=== PATIENT | female | born 1970 | race Caucasian/White ===

== ENCOUNTER → 2016-09-01 | Outpatient (CLI) | payer OTHER | END | disposition home or self-care (01) | LOC: MA 08-26 13:00 | PROC: BU4CZZZ Ultrasonography of Uterus and Ovaries (ICD-10-PCS; principal; 2016-09-01) | PROC: BW40ZZZ Ultrasonography of Abdomen (ICD-10-PCS; 2016-09-01) | PROC: BH02ZZZ Plain Radiography of Bilateral Breasts (ICD-10-PCS; 2016-09-01) | DX: Z12.31 Encounter for screening mammogram for malignant neoplasm of breast (principal); Z87.42 Personal history of other diseases of the female genital tract | CPT/HCPCS: G0204 ==

== ENCOUNTER → 2017-02-03 | Outpatient (CLI) | payer OTHER | END | disposition home or self-care (01) | LOC: LB 16:38 | DX: N76.0 Acute vaginitis (principal); Z72.51 High risk heterosexual behavior ==

== ENCOUNTER → 2018-04-22 | Outpatient (CLI) | payer OTHER | END | disposition home or self-care (01) | LOC: MA 14:41 | PROC: BH02ZZZ Plain Radiography of Bilateral Breasts (ICD-10-PCS; principal; 2018-04-22) | DX: Z12.31 Encounter for screening mammogram for malignant neoplasm of breast (principal); Z12.39 Encounter for other screening for malignant neoplasm of breast | CPT/HCPCS: 77066 ==

== ENCOUNTER → 2018-07-08 | Outpatient (CLI) | payer OTHER | END | disposition home or self-care (01) | LOC: LB 16:56 | DX: N95.1 Menopausal and female climacteric states (principal) | CPT/HCPCS: 82670; 84402; 84403 ==

== ENCOUNTER → 2019-07-29 | Outpatient (CLI) | payer OTHER ==
[2019-07-29 10:59] LABS: BASOPHIL % 0.7 % (0-2); PLATELET COUNT 229 x10^3mcL (130-400); RED CELL DISTRIBUTION WIDTH 13.5 % (11.5-14.5)
[2019-07-29 11:22] LABS: ALKALINE PHOSPHATASE 88 U/L (46-116); ALT/SGPT 26 U/L (14-59); AST/SGOT 20 U/L (15-37); BILIRUBIN TOTAL 0.65 mg/dL (0.20-1.00); CALCIUM 9.2 mg/dL (8.5-10.1); CARBON DIOXIDE 27.5 mmol/L (21-32); CHLORIDE SERUM 105 mmol/L (98-107); CHOLESTEROL 195 mg/dL (<200); CREATININE SERUM 0.7 mg/dL (0.6-1.0); GFR1 > 60 mL/min; GLUCOSE SERUM 93 mg/dL (74-106); POTASSIUM SERUM 3.6 mmol/L (3.5-5.1); SODIUM SERUM 140 mmol/L (136-145); TOTAL PROTEIN, SERUM 7.4 g/dL (6.4-8.2); TRIGLYCERIDES 54 mg/dL (<150)
[2019-07-29 11:23] LABS: CHOLESTEROL/HDL RATIO 2.2; HDL CHOLESTEROL 90 mg/dL (40-60)
[2019-08-02 09:08] LABS: THYROGLOBULIN ANTIBODY 5.9 IU/mL (0.0-0.9)
== END | disposition home or self-care (01) ==
LOC: MA 09:42
PROC: BH02ZZZ Plain Radiography of Bilateral Breasts (ICD-10-PCS; principal; 2019-07-29)
DX: R92.8 Other abnormal and inconclusive findings on diagnostic imaging of breast (principal)
CPT/HCPCS: 77066; 84439; 86376

== ENCOUNTER → 2019-12-05 | Outpatient (CLI) | payer OTHER | END | disposition home or self-care (01) | LOC: US 08:31 | PROC: BW40ZZZ Ultrasonography of Abdomen (ICD-10-PCS; principal; 2019-12-05) | DX: R10.9 Unspecified abdominal pain (principal) ==

== ENCOUNTER 2019-12-09 12:48 | Emergency (ER) | payer OTHER ==
[~2019-12-09] VITALS: Ht 157.5 cm; Wt 55.8 kg
[2019-12-09 13:07] VITALS: Ht 157.5 cm; Wt 55.8 kg
[2019-12-09 13:46] LABS: CARBON DIOXIDE 29.6 mmol/L (21-32); CHLORIDE SERUM 100 mmol/L (98-107); CREATININE SERUM 0.8 mg/dL (0.6-1.0); GFR1 > 60 mL/min; GLUCOSE SERUM 109 mg/dL (74-106); POTASSIUM SERUM 3.4 mmol/L (3.5-5.1); SODIUM SERUM 137 mmol/L (136-145)
[2019-12-09 13:52] LABS: BASOPHIL % 0.6 % (0-2); PLATELET COUNT 258 x10^3mcL (130-400); RED CELL DISTRIBUTION WIDTH 13.1 % (11.5-14.5)
[2019-12-09 13:58] LABS: ALBUMIN 4.2 g/dL (3.4-5.0); ALKALINE PHOSPHATASE 91 U/L (46-116); ALT/SGPT 25 U/L (14-59); AST/SGOT 23 U/L (15-37); BILIRUBIN TOTAL 0.7 mg/dL (0.20-1.00); T4(THYROXINE) 8.3 ug/dL (4.7-13.3); TOTAL PROTEIN, SERUM 7.8 g/dL (6.4-8.2)
[2019-12-09 14:25] LABS: CK-MB 0.5 ng/mL (0-3.6)
[2019-12-09 14:29] LABS: AMPHETAMINE QUAL UR NONE DETECTED (See below)
[2019-12-09 15:24] VITALS: BP 116/69
== END 2019-12-09 15:24 | disposition home or self-care (01) ==
LOC: ED 12:48
PROVIDERS: Emergency Medicine
DX: M94.0 Chondrocostal junction syndrome [Tietze] (principal); I31.3 Pericardial effusion (noninflammatory)
CPT/HCPCS: 36600; 83880; J1885